=== PATIENT | male | born 1950 | race Caucasian/White ===

== ENCOUNTER → 2016-06-11 | Day surgery (SDC) | payer MEDICARE, OTHER ==
[2016-06-11 10:01] LABS: HCT 39.8 % (42.0-52.0); MCH 30.8 pg (25.0-31.0); MCHC 35.2 g/dL (32.0-36.0); MCV 87.5 fL (78.0-100.0); MPV 11.9 fL (6.0-9.5); RBC 4.55 M/uL (4.70-6.00); WBC 4.3 K/uL (4.0-10.5)
[2016-06-11 10:12] LABS: ALBUMIN 4.4 g/dL (3.4-4.8); BILIRUBIN - TOTAL 1.3 mg/dL (0.1-1.0); CREATININE 0.6 mg/dL (0.7-1.2); GLOBULIN (CALCULATION) 3.2 g/dL (2.2-4.2); POTASSIUM 3.5 mmol/L (3.5-5.1); TOTAL PROTEIN 7.6 g/dL (6.4-8.3)
== END | disposition home or self-care (01) ==
LOC: FAS 10:30
PROVIDERS: Surgery
DX: L05.01 Pilonidal cyst with abscess (principal); I10 Essential (primary) hypertension; E78.00 Pure hypercholesterolemia, unspecified; G89.29 Other chronic pain; E11.42 Type 2 diabetes mellitus with diabetic polyneuropathy; K74.60 Unspecified cirrhosis of liver; K72.90 Hepatic failure, unspecified without coma; K21.9 Gastro-esophageal reflux disease without esophagitis; E78.5 Hyperlipidemia, unspecified; E66.9 Obesity, unspecified; M06.9 Rheumatoid arthritis, unspecified; E11.40 Type 2 diabetes mellitus with diabetic neuropathy, unspecified; Z87.891 Personal history of nicotine dependence; Z83.3 Family history of diabetes mellitus; Z79.899 Other long term (current) drug therapy; Z79.84 Long term (current) use of oral hypoglycemic drugs; Z79.2 Long term (current) use of antibiotics; Z98.49 Cataract extraction status, unspecified eye; Z98.890 Other specified postprocedural states; Z68.32 Body mass index [BMI] 32.0-32.9, adult
CPT/HCPCS: 36415; 80053; J1170; J2405; J3010

== ENCOUNTER 2020-08-26 09:42 | Inpatient (IN) | payer MEDICARE, OTHER ==
[~2020-08-26] VITALS: Ht 177.8 cm; Wt 96.3 kg
[~2020-08-26 09:42] MED LIST: ALDACTONE100 MG PO; ATORVASTATIN CA80 MG PO; CYMBALTA20 MG PO; GLIMEPIRIDE4 MG PO; HYDROCHLOROTH12.5 MG PO; JANUMET 50-1,01 EACH PO; LASIX40 MG PO; LINZESS145 MCG PO; LYRICA 50MG CAP50 MG PO; LYRICA150 MG PO; OXAYDO7.5 MG PO; OXYCODONE HCL10 MG PO; OXYCODONE-ACET1 EACH PO; QUINAPRIL HCL10 MG PO; TRAZODONE 100M100 MG PO; XIFAXAN550 MG PO
[2020-08-26 10:16] LABS: BASOPHIL 1.9 % (0-2); EOSINOPHIL 2.5 % (0-7); HCT 33.8 % (42.0-52.0); HGB 11.5 g/dl (13.2-18.0); LYMPHOCYTE 18.7 % (15-48); MCH 31.9 pg (25.0-31.0); MCV 93.6 fL (78.0-100.0); MONOCYTE 10.8 % (0-12); NEUTROPHIL 65.8 % (41-80); NRBC 0; PLT 142 K/uL (150-400); RBC 3.61 M/uL (4.70-6.00); RDW 14.4 % (11.5-14.0); WBC 5.9 K/uL (4.0-10.5)
[2020-08-26 10:19] LABS: INR 1.26 (0.9-1.2)
[2020-08-26 10:44] LABS: CREATININE 0.63 mg/dL (0.67-1.17)
[2020-08-26 10:45] LABS: ALBUMIN 3.1 g/dL (3.4-5.0); BILIRUBIN - TOTAL 1.4 mg/dL (0.2-1.0); GLOBULIN (CALCULATION) 3.6 g/dL; POTASSIUM 4.2 mmol/L (3.5-5.1); TOTAL PROTEIN 6.7 g/dL (6.4-8.2)
[2020-08-26] MEDS ORDERED: JANUMET 50-1,01 EACH PO (13:42)
[2020-08-26] MEDS ORDERED: AMITIZA8 MCG PO (13:43)
[2020-08-26] MEDS ORDERED: NOVOLOG VI100 UNIT/1 SC (13:43)
[2020-08-26] MEDS ORDERED: TRESIBA FL100 UNIT/1 SC (13:44)
[2020-08-26] MEDS ORDERED: NADOLOL 20MG TA20 MG PO (13:46)
[2020-08-26] MEDS ORDERED: AUGMENTIN 875-1 EACH PO (13:48)
[2020-08-26 17:53] LABS: HCT 29.8 % (42.0-52.0); HGB 10.6 g/dl (13.2-18.0); MCH 32.4 pg (25.0-31.0); MCHC 35.6 g/dL (32.0-36.0); MCV 91.1 fL (78.0-100.0); MPV 11.6 fL (6.0-9.5); RBC 3.27 M/uL (4.70-6.00); RDW 14.3 % (11.5-14.0); WBC 5.9 K/uL (4.0-10.5)
--- NOTE | 2020-08-26 17:58 | NUR ---
1750 PT BLOOG GLUCOSE IS 39, NOTIFIED MD DR COSTELLO, ORDERED TO GIVE DEXTROSE 50ML AT THIS TIME. PT SLUGGISH WHEN ANSWERING QUESTIONS, SEEMS CONFUSED AT TIMES.
--- NOTE | 2020-08-26 18:21 | NUR ---
1821 RECHECK BLOODSUGAR 142.
[2020-08-26 23:51] LABS: HCT 28.4 % (42.0-52.0); HGB 9.9 g/dL (13.2-18.0)
[2020-08-27 06:09] LABS: EOSINOPHIL 8.4 % (0-7); HCT 27.6 % (42.0-52.0); HGB 9.7 g/dl (13.2-18.0); MCH 32.1 pg (25.0-31.0); MCHC 35.1 g/dL (32.0-36.0); MCV 91.4 fL (78.0-100.0); MONOCYTE 13.2 % (0-12); MPV 11.7 fL (6.0-9.5); NEUTROPHIL 56.2 % (41-80); NRBC 0; PLT 111 K/uL (150-400); RBC 3.02 M/uL (4.70-6.00); RDW 14.3 % (11.5-14.0)
[2020-08-27 07:09] LABS: CREATININE 0.69 mg/dL (0.67-1.17); POTASSIUM 3.3 mmol/L (3.5-5.1)
[2020-08-27] MEDS ORDERED: PANTOPRAZOLE SO40 MG PO (15:23)
[2020-08-27] MEDS ORDERED: LACTULOSE20 GM/30 M PO (15:23)
[2020-10-02] MEDS ORDERED: OXYCODONE HCL10 MG PO (13:53)
[2020-10-02] MEDS ORDERED: NARCAN4 MG (14:05)
== END 2020-08-27 16:15 | disposition home or self-care (01) | DRG 441 ==
LOC: FER 09:42 → FTCU 12:38
PROVIDERS: Emergency Medicine; Internal Medicine; Student in an Organized Health Care Education/Training Program; ADMIT Allergy & Immunology Allergy
PROC: 0DJ08ZZ Inspection of Upper Intestinal Tract, Via Natural or Artificial Opening Endoscopic (ICD-10-PCS; principal; 2020-08-27 13:00)
DX: K76.6 Portal hypertension (principal); I85.11 Secondary esophageal varices with bleeding; K65.2 Spontaneous bacterial peritonitis; K74.69 Other cirrhosis of liver; E11.9 Type 2 diabetes mellitus without complications; K75.81 Nonalcoholic steatohepatitis (NASH); G89.29 Other chronic pain; Z20.822 Contact with and (suspected) exposure to COVID-19; K72.90 Hepatic failure, unspecified without coma; I86.4 Gastric varices; M19.90 Unspecified osteoarthritis, unspecified site; K59.03 Drug induced constipation; E78.5 Hyperlipidemia, unspecified; Z90.49 Acquired absence of other specified parts of digestive tract; Z98.890 Other specified postprocedural states; Z88.8 Allergy status to other drugs, medicaments and biological substances; Z79.4 Long term (current) use of insulin; Z79.899 Other long term (current) drug therapy; Z87.891 Personal history of nicotine dependence
CPT/HCPCS: 36415; 80048; 80053; 82140; 82150; 82962; 83690; 85014; 85018; 85025; 85610; 85730; 86850; 86900; 86901; C9113; J0696; J2270; J2354; J2405; J2704; J7030; J7120; Q9967; U0002